=== PATIENT | male | born 1985 | race Caucasian/White ===

== ENCOUNTER → 2016-09-22 | Day surgery (SDC) | payer BC ==
[~2016-09-22] MED LIST: Acetaminophen/HYDROcodone 325-7.5 MG Tab PO PRN; Bupivacaine 0.5% 10 ML SDV ONE; HYDROmorphone 2 MG/ML Syringe ONE; Labetalol 100 MG/20 ML MDV ONE; Lactated Ringers 1,000 ML IV SCH; Lidocaine 2% 5 ML SDV ONE; Meperidine PF 25 MG/ML Syringe ONE; Midazolam 1 MG/ML 2 ML SDV ONE; Morphine 10 MG/ML Syringe IVPUSH PRN; Ondansetron 4 MG/2 ML SDV IVPUSH ONE; Ondansetron 4 MG/2 ML SDV ONE; Propofol 200 MG/20 ML SDV ONE; Sodium Chloride 0.9% 10 ML Syringe FLUSH PRN; Sodium Chloride 0.9% 2.5 ML Syringe FLUSH PRN; Sodium Chloride 0.9% 20 ML ONE; Succinylcholine/Normal Saline 200 MG/10 ML Syringe ONE; ceFAZolin 1 GM Vial ONE; ceFAZolin 2 GM in Premix Bag 1 BAG IV ONE; fentaNYL 100 MCG/2 ML SDV IVPUSH PRN; fentaNYL 250 MCG/5 ML SDV ONE
--- NOTE | 2016-09-22 20:25 | EDM.PDOC ---
ED HPI GENERAL MEDICAL PROBLEM - General Chief Complaint: Upper Extremity Injury/Pain Stated Complaint: PAIN LT WRIST Time Seen by Provider: 09/22/16 20:22 Source of Information: Reports: Patient History Limitations: Reports: No Limitations - History of Present Illness INITIAL COMMENTS - FREE TEXT/NARRATIVE: HISTORY AND PHYSICAL: []31-year-old male presents with deformity to the left wrist History of Present Illness: [] Patient was playing baseball told for a ball and his risk contact and flex hyper flexed backwards is a swan neck to the wrist Loss of consciousness he did catch the ball and then it rolled out of his glove Review of Systems: As per history of present illness and below otherwise all systems reviewed and negative. Past medical history: As per history of present illness and as reviewed below otherwise noncontributory. Surgical history: As per history of present illness and as reviewed below otherwise noncontributory. Social history: No reported history of drug or alcohol abuse. Family history: As per history of present illness and as reviewed below otherwise noncontributory. Physical exam: Alert and oriented male answering questions in full sentences HEENT: Atraumatic, normocehpalic, pupils reactive, negative for conjunctival pallor or scleral icterus, mucous membranes moist, throat clear, neck supple, nontender, trachea midline. Lungs: Clear to auscultation, breath sounds equal bilaterally, chest non tender. Heart: S1S2, regular, negative for clicks, rubs, or JVD. Rectal: Deferred Extremities: Splint is been placed on his left forearm. Ice to this area. Radial pulses intact 2+ slight tingling noted to the fingertips. Edema and swan neck deformity to the wrist and forearm, negative for cords or calf pain. Neurovascular unremarkable. Intact Neuro: Awake, alert, oriented. Cranial nerves II through XII unremarkable. Cerebellum unremarkable. Motor and sensory unremarkable throughout. Exam nonfocal. Pain level is a 4 while he is just sitting there and with ice on and splinted refusing the offer of pain medication. Dr. Mace is here to evaluate patient. Xray reviewed for fracture Diagnostics: []X-ray Therapeutics: [] Impression: [Displaced fracture the distal shaft of the radius with volar angulation Disruption of the distal radial ulnar joint with volar dislocation] Plan: [Refer patient to Dr. Mace] Definitive disposition and diagnosis as appropriate pending reevaluation and review of above. Onset: Today, Sudden Duration: Minutes: Location: Reports: Upper Extremity, Left Quality: Reports: Sharp Severity: Moderate Improves with: Reports: None Worsens with: Reports: None Associated Symptoms: Reports: No Other Symptoms Left Arm Pain Score (Numeric/FACES): 4 - Related Data Allergies Allergy/AdvReac Type Severity Reaction Status Date / Time No Known Allergies Allergy Verified 01/01/15 13:41 Home Meds: Home Meds . [No Known Home Meds] 01/01/15 [History] Past Medical History - Past Health History Medical/Surgical History: Denies Medical/Surgical History Other Psychiatric History: tourretts Social & Family History - Tobacco Use Smoking Status *Q: Never Smoker Second Hand Smoke Exposure: No - Alcohol Use Days Per Week of Alcohol Use: 6 Number of Drinks Per Day: 3 Total Drinks Per Week: 18 - Recreational Drug Use Recreational Drug Use: No Review of Systems - Review of Systems Review Of Systems: ROS reveals no pertinent complaints other than HPI. ED EXAM, GENERAL - Physical Exam Exam: See Below (see dictation) Course - Vital Signs Last Recorded V/S: Last Vital Signs Temp 37.1 C 09/22/16 20:56 Pulse 88 09/22/16 20:56 Resp 18 09/22/16 20:56 BP 129/83 09/22/16 20:56 Pulse Ox 98 09/22/16 20:56 - Orders/Labs/Meds Orders: Active Orders 24 hr Category Date Time Status Patient Status [ADT] Stat ADT 09/22/16 21:27 Active Verify Patient Consent Obtain [RC] ASDIRECTED Care 09/22/16 21:23 Active Vital Signs [RC] PER UNIT ROUTINE Care 09/22/16 21:24 Active Nothing per Oral After Midnight Diet [DIET] Diet 09/22/16 Breakfast Active Wrist 2V Lt [CR] Stat Exams 09/22/16 20:11 Taken Lactated Ringers [Ringers, Lactated] 1,000 ml Med 09/22/16 21:30 Ordered IV ASDIRECTED Morphine Med 09/22/16 21:24 Ordered 1 - 5 mg IVPUSH Q2H PRN Sodium Chloride 0.9% [Saline Flush] Med 09/22/16 21:29 Active 10 ml FLUSH ASDIRECTED PRN Sodium Chloride 0.9% [Saline Flush] Med 09/22/16 21:29 Active 2.5 ml FLUSH ASDIRECTED PRN ceFAZolin [Ancef] 2,000 mg Med 09/22/16 21:24 Ordered Sodium Chloride 0.9% [Normal Saline] 100 ml IV ONETIME Saline Lock Insert [OM.PC] Stat Oth 09/22/16 21:29 Ordered Medication Orders Lactated Ringer's (Ringers, Lactated) 1,000 mls @ 100 mls/hr IV ASDIRECTED YOLANDE Cefazolin Sodium 2,000 mg/ (Sodium Chloride) 100 mls @ 100 mls/hr IV ONETIME ONE Stop: 09/22/16 22:23 Morphine Sulfate (Morphine) 1 - 5 mg IVPUSH Q2H PRN PRN Reason: Pain Sodium Chloride (Saline Flush) 10 ml FLUSH ASDIRECTED PRN PRN Reason: Keep Vein Open Sodium Chloride (Saline Flush) 2.5 ml FLUSH ASDIRECTED PRN PRN Reason: Keep Vein Open Meds: Medications Generic Name Dose Route Start Last Admin Trade Name Freq PRN Reason Stop Dose Admin Lactated Ringer's 1,000 mls @ 100 mls/hr 09/22/16 21:30 Ringers, Lactated IV ASDIRECTED YOLANDE Cefazolin Sodium 2,000 mg/ 100 mls @ 100 mls/hr 09/22/16 21:24 Sodium Chloride IV 09/22/16 22:23 ONETIME ONE Morphine Sulfate 1 - 5 mg 09/22/16 21:24 Morphine IVPUSH Q2H PRN Pain Sodium Chloride 10 ml 09/22/16 21:29 Saline Flush FLUSH ASDIRECTED PRN Keep Vein Open Sodium Chloride 2.5 ml 09/22/16 21:29 Saline Flush FLUSH ASDIRECTED PRN Keep Vein Open Departure - Departure Time of Disposition: 21:08 Disposition: Refer to Observation Condition: Fair Clinical Impression: Closed fracture of radius Qualifiers: Encounter type: initial encounter Radius location: distal Fracture morphology: unspecified fracture morphology Laterality: left Qualified Code(s): S52.502A - Unspecified fracture of the lower end of left radius, initial encounter for closed fracture - Discharge Information - My Orders Last 24 Hours: My Active Orders 09/22/16 20:11 Wrist 2V Lt [CR] Stat 09/22/16 21:27 Patient Status [ADT] Stat 09/22/16 21:29 Sodium Chloride 0.9% [Saline Flush] 10 ml FLUSH ASDIRECTED PRN Sodium Chloride 0.9% [Saline Flush] 2.5 ml FLUSH ASDIRECTED PRN Saline Lock Insert [OM.PC] Stat - Assessment/Plan Last 24 Hours: My Active Orders 09/22/16 20:11 Wrist 2V Lt [CR] Stat 09/22/16 21:27 Patient Status [ADT] Stat 09/22/16 21:29 Sodium Chloride 0.9% [Saline Flush] 10 ml FLUSH ASDIRECTED PRN Sodium Chloride 0.9% [Saline Flush] 2.5 ml FLUSH ASDIRECTED PRN Saline Lock Insert [OM.PC] Stat
--- NOTE | 2016-09-22 21:43 | PCM.PREANE ---
Preanesthetic Assessment - Anesthesia/Transfusion/Family Hx Anesthesia History: Prior Anesthesia Without Reaction Intubation History: Unknown - Review of Systems General: No Symptoms Pulmonary: No Symptoms Cardiovascular: No Symptoms Gastrointestinal: No Symptoms Neurological: No Symptoms Other: Reports: None - Physical Assessment O2 Sat by Pulse Oximetry: 98 Respiratory Rate: 18 Vital Signs: Last Vital Signs Temp 98.8 F 09/22/16 20:56 Pulse 88 09/22/16 20:56 Resp 18 09/22/16 20:56 BP 129/83 09/22/16 20:56 Pulse Ox 98 09/22/16 20:56 Height: 5 ft 10 in Weight: 85.3 kg ASA Class: 1E Mental Status: Alert & Oriented x3 Airway Class: Mallampati = 2 Dentition: Reports: Normal Dentition Thyro-Mental Finger Breadths: 3 Mouth Opening Finger Breadths: 3 ROM/Head Extension: Full Lungs: Clear to Auscultation, Normal Respiratory Effort Cardiovascular: Regular Rate, Regular Rhythm - Allergies Allergies/Adverse Reactions: Allergies Allergy/AdvReac Type Severity Reaction Status Date / Time No Known Allergies Allergy Verified 01/01/15 13:41 - Anesthesia Plan Free Text/Narrative:: Numbness and tingling is noted to the median distribution of the Left hand - Acknowledgements Anesthesia Type Planned: General Anesthesia (with RSI) Pt an Appropriate Candidate for the Planned Anesthesia: Yes Alternatives and Risks of Anesthesia Discussed w Pt/Guardian: Yes Pt/Guardian Understands and Agrees with Anesthesia Plan: Yes PreAnesthesia Questionnaire - Past Health History Medical/Surgical History: Denies Medical/Surgical History HEENT History: Reports: None Cardiovascular History: Reports: None Respiratory History: Reports: None Gastrointestinal History: Reports: None Genitourinary History: Reports: None Musculoskeletal History: Reports: None Neurological History: Reports: None Other Psychiatric History: tourretts Endocrine/Metabolic History: Reports: None Hematologic History: Reports: None Immunologic History: Reports: None Oncologic (Cancer) History: Reports: None Dermatologic History: Reports: None - Infectious Disease History Infectious Disease History: Reports: None - Past Surgical History GI Surgical History: Reports: Hernia Repair/Other Musculoskeletal Surgical History: Reports: Arthroscopic Knee (Knee), ORIF ( Ankle x 2) - SUBSTANCE USE Smoking Status *Q: Never Smoker Second Hand Smoke Exposure: No Days Per Week of Alcohol Use: 6 Number of Drinks Per Day: 3 Total Drinks Per Week: 18 Recreational Drug Use History: No - HOME MEDS Home Medications: Home Meds . [No Known Home Meds] 01/01/15 [History] - CURRENT (IN HOUSE) MEDS Current Meds: Current Medications Lactated Ringer's (Ringers, Lactated) 1,000 mls @ 100 mls/hr IV ASDIRECTED YOLANDE Cefazolin Sodium 2,000 mg/ (Sodium Chloride) 100 mls @ 100 mls/hr IV ONETIME ONE Stop: 09/22/16 22:23 Morphine Sulfate (Morphine) 1 - 5 mg IVPUSH Q2H PRN PRN Reason: Pain Sodium Chloride (Saline Flush) 10 ml FLUSH ASDIRECTED PRN PRN Reason: Keep Vein Open Sodium Chloride (Saline Flush) 2.5 ml FLUSH ASDIRECTED PRN PRN Reason: Keep Vein Open
--- NOTE | 2016-09-23 00:59 | PCM.OPNOTE ---
- General Post-Op/Procedure Note Date of Surgery/Procedure: 09/23/16 Operative Procedure(s): ORIF left radial shaft fx, non-op treatment DRUJ disruption Findings: comminution, stable DRUJ at end Pre Op Diagnosis: left radial shaft fx with DRUJ disruption (Galeazzi fx) Post-Op Diagnosis: same Anesthesia Technique: General ET Tube Primary Surgeon: Damon Fry Mai EBL in mLs: 10 Complications: none Condition: Fair
--- NOTE | 2016-09-23 01:16 | HP ---
DATE OF : 1985 PRIMARY CARE PHYSICIAN: None PCP SUBJECTIVE: The patient is a 31-year-old [id number] male, who was diving for a fly ball, playing softball this evening where his arm got caught. He had immediate pain and deformity to the arm and presented to the ER. He feels that he has a little bit of tingling into his fingers in all 5 of them. He has no pain elsewhere to include the elbow. He denies history of fracture. PAST MEDICAL HISTORY: None. PAST SURGICAL HISTORY: Includes left ankle fracture with removal of the plate, hernia, and finger cyst. MEDICATIONS: None. ALLERGIES: None. SOCIAL HISTORY: He does not smoke. He drinks occasionally. No illicit. He works mainly sitting. FAMILY HISTORY: No problems with bleeding disorders or anesthesia. REVIEW OF SYSTEMS: No current problems of heart, lungs, kidney, or liver. PHYSICAL EXAMINATION: GENERAL: No apparent distress. Alert and oriented x3. HEENT: Mucous membranes moist. Anicteric. LUNGS: Equal symmetric expansion. CARDIOVASCULAR: Regular rate and rhythm. 2+ radial and ulnar pulse left upper extremity. ABDOMEN: Soft. EXTREMITIES: Left arm reveals deformity with angulation in the distal third. He has normal sensation in radial, median, ulnar nerves. Active motor strength in AIN/PIN/ulnar nerves. He has 2+ radial and ulnar pulse. DIAGNOSTIC DATA: X-rays of left forearm demonstrate a Galeazzi fracture with apex volar radius fracture with volar dislocation of the distal radioulnar joint. ASSESSMENT: Left Galeazzi fracture. PLAN: I discussed diagnosis, treatment options with the patient including operative and nonoperative measures. I recommended operative fixation with him rather than closed reduction and fixation later. The patient elects to have surgery. He understands the risks, benefits, complications of procedure including, but not limited to infection, neurovascular injury, continued pain, DVT, PE, stroke, [place], , malunion, nonunion, loss of motion, and he wished to proceed. I discussed with him that examination after fixing the radius would determine whether the DRUJ would need to be pinned, and that he would likely be immobilized in supination for a period. GLENDY SPEAR /[id number]
--- NOTE | 2016-09-23 01:25 | PCM48HPAN ---
Post Anesthesia Note - EVALUATION WITHIN 48HRS OF ANESTHETIC Vital Signs in Normal Range: Yes Patient Participated in Evaluation: Yes Respiratory Function Stable: Yes Airway Patent: Yes Cardiovascular Function Stable: Yes Hydration Status Stable: Yes Pain Control Satisfactory: Yes Nausea and Vomiting Control Satisfactory: Yes Mental Status Recovered: Yes
--- NOTE | 2016-09-23 01:25 | PCM.POSTAN ---
POST ANESTHESIA ASSESSMENT - MENTAL STATUS Mental Status: Alert, Oriented - RESPIRATORY Respiratory Status: respiratory rate WNL, Airway Patent, O2 Saturation Stable - CARDIOVASCULAR CV Status: Pulse Rate WNL, Blood Pressure Stable - GASTROINTESTINAL GI Status: No Symptoms - POST OP HYDRATION Hydration Status: Adequate & Stable
[2016-09-23 06:55] VITALS: BP 130/73
--- NOTE | 2016-09-23 08:42 | CR ---
EXAMINATION: Left wrist HISTORY: ORIF COMPARISON: 09/22/2016 TECHNIQUE: 5 fluoroscopic films provided. FINDINGS/IMPRESSION: Operative control films demonstrate screw and plate fixation of a reduced dista l radial diaphysis fracture.
--- NOTE | 2016-09-23 10:52 | CR ---
EXAM DATE: 09/22/16 PATIENT'S AGE: 31 Patient: TRIXIE DOUGLAS Facility: [place], [place] Site . Site : 1985 Study: XRay Extremity wrist [id number]/24/2017 8:40:24 PM Ordering Physician: Doctor Pretty Final Report: INDICATION: Trauma TECHNIQUE: Two views left wrist COMPARISON: None FINDINGS: Bones: Displaced fracture distal shaft of the radius with volar angulation. Joint spaces: Disruption of the distal radial ulnar joint with anterior dislocation of the ulna. Soft tissues: Unremarkable. IMPRESSION: Displaced fracture distal shaft of the radius with volar angulation. Disruption of the distal radial ulnar joint with volar dislocation of the distal ulna. Postreduction views recommended. Dictated by Giancarlo Rosenthal MD @ 09/22/2016 9:03:06 PM Dictated by: Giancarlo Rosenthal MD @ 09/22/2016 21:03:14 (Electronic Signature) Report Signed by Proxy. DENIS
--- NOTE | 2016-09-24 09:54 | OR ---
SURGEON: Damon Mace MD DATE OF PROCEDURE: 09/23/2016 PREOPERATIVE DIAGNOSIS: Left radial shaft fracture with distal radioulnar joint disruption (Galeazzi fracture). OPERATION PERFORMED: Open reduction and internal fixation of left radial shaft fracture with nonoperative treatment of distal radioulnar joint disruption. ANESTHESIA: General. COMPLICATION: None. ESTIMATED BLOOD LOSS: 10 mL. SPECIMENS: None. TOURNIQUET TIME: 25 minutes. IMPLANTS: Lydia DC plate with six 3.5 cortical nonlocking screws INDICATIONS: The patient is a 31-year-old male, right-hand dominant, who suffered a Galeazzi fracture yesterday evening. He was getting some tingling into his hand. I discussed with him the risks, benefits, alternatives, and complications of open reduction and internal fixation including not limited to, infection, neurovascular injury, continued pain, symptoms, malunion, nonunion, DRUJ disruption to include, need to be pinned and he wished to proceed. NARRATIVE: The patient was seen in the preop area, upper extremity was marked. The patient was transferred to the operating room, and placed supine on the operating room table. General anesthesia was induced. An endotracheal tube was placed. He received preop antibiotics Ancef. His left upper extremity was prepped and draped usual sterile fashion using alcohol followed by ChloraPrep. A formal time-out was taken identifying the correct patient, procedure, and extremity. A well-padded upper arm tourniquet had been placed and then the limb was exsanguinated with an Esmarch and pneumatic tourniquet inflated to 200 mmHg. A 12 cm incision centered over the FCR tendon was made. Dissection was carried out down to subcutaneous tissues. Hemostasis was obtained. The fascia overlying the FCR was opened and the FCR was pulled ulnarly. The fascia over the FPL was opened and the FPL was released from the bone as well as the pronator quadratus over its proximal 2/3rd and this was retracted ulnarly. The fracture was readily able to be identified and was able to be reduced and held with a reduction clamp, then a 6-hole Lydia DC plate was placed. One screw hole was placed proximal and distal to hold it and then the remainder of the four holes were all placed bicortical 2 more proximal and 2 more distal. This had excellent reduction of the fracture. There were couple of small pieces of comminuted fracture pieces which were removed, the fracture was short and oblique. The wound was then thoroughly irrigated. The arm was then pronated and supinated and had full range of motion. The DRUJ was stable and would not dislocate. Fluoroscopy showed anatomic reduction of the fracture in the AP and lateral views as well as of the DRUJ with no disruption. Tourniquet were deflated. Hemostasis was obtained. The wound was thoroughly irrigated. The subcutaneous tissues were closed with 3-0 Vicryl and skin was closed with xiomara. He was then anesthetized with Marcaine. Xeroform and a splint were placed. The patient was extubated in the operative room and transferred to recovery room in stable condition. Sponge and needle counts were correct at the end of the case. There were no complications. GLENDY SPEAR /[id number]
== END | disposition home or self-care (01) ==
LOC: MW.ED 19:51 → MW.SDS 21:19
PROVIDERS: ATTEND Orthopaedic Surgery
PROC: 0PSJ04Z Reposition Left Radius with Internal Fixation Device, Open Approach (ICD-10-PCS; principal; 2016-09-22)
PROC: 0PSD04Z Reposition Left Humeral Head with Internal Fixation Device, Open Approach (ICD-10-PCS; 2016-09-22)
DX: S52.372A Galeazzi's fracture of left radius, initial encounter for closed fracture (principal); Y93.64 Activity, baseball; Z87.81 Personal history of (healed) traumatic fracture; Z98.890 Other specified postprocedural states
CPT/HCPCS: 25526; 73100; 96374; 96375; 99284; C1713; J0690; J2250; J2270; J2405; J3010; J7120; 01830; 76000; 76000-26; 99285; A9270-GY; J1170; J2175; J2704

== ENCOUNTER 2019-02-12 15:31 | Emergency (ER) | payer BC ==
[2019-02-12 15:40] VITALS: BP 131/95; PULSE 96
[2019-02-12] MEDS ORDERED: Ondansetron 4 MG/2 ML SDV IVPUSH ONE (15:52)
[2019-02-12] MEDS ORDERED: Sodium Chloride 0.9% 1,000 ML IV ONE (15:52)
[2019-02-12] MEDS ORDERED: Metoclopramide 10 MG/2 ML SDV IV ONE (15:53)
[2019-02-12] MEDS ORDERED: diphenhydrAMINE 50 MG/ML SDV IVPUSH ONE (15:53)
--- NOTE | 2019-02-12 16:12 | EDM.PDOC ---
ED HPI GENERAL MEDICAL PROBLEM - General Chief Complaint: Gastrointestinal Problem Stated Complaint: VOMITTING AND MIGRAINE Time Seen by Provider: 02/12/19 15:46 Source of Information: Reports: Patient History Limitations: Reports: No Limitations - History of Present Illness INITIAL COMMENTS - FREE TEXT/NARRATIVE: HISTORY AND PHYSICAL: History of present illness: Patient is a 33-year-old male presents to the ED today with concern of vomiting and RLQ abdominal pain 3 days. Patient also complains of headache which he states is what brought him into the ED today because he has not had a headache this painful according to patient. Patient states he has had a hernia repair when he was little but denies any other abdominal surgeries. Patient states that any time he tries to eat or drink any fluids hands of vomiting shortly after. Patient denies any health history or any other symptoms or concerns. Patient denies fever, chills, chest pain, shortness of breath, or cough. Denies neck stiff ness, change in vision, syncope, or near syncope. Denies diarrhea, constipation, or dysuria. Has not noted any blood in urine or stool. Patient has been eating and drinking appropriately. Review of systems: As per history of present illness and below otherwise all systems reviewed and negative. Past medical history: As per history of present illness and as reviewed below otherwise noncontributory. Surgical history: As per history of present illness and as reviewed below otherwise noncontributory. Social history: See social history for further information Family history: As per history of present illness and as reviewed below otherwise noncontributory. Physical exam: General: Patient is alert, oriented, and in no acute distress. Patient laying comfortably on exam table. HEENT: Atraumatic, normocephalic, pupils equal and reactive bilaterally, negative for conjunctival pallor or scleral icterus, mucous membranes moist, TMs normal bilaterally, throat clear, neck supple, nontender, trachea midline. No drooling or trismus noted. No meningeal signs. No hot potato voice noted. Lungs: Clear to auscultation, breath sounds equal bilaterally, chest nontender. Heart: S1S2, regular rate and rhythm without overt murmur Abdomen: Soft, nondistended, nontender. Negative for masses or hepatosplenomegaly. Negative for costovertebral tenderness. Pelvis: Stable nontender. Genitourinary: Deferred. Rectal: Deferred. Skin: Intact, warm, dry. No lesions or rashes noted. Extremities: Atraumatic, negative for cords or calf pain. Neurovascular unremarkable. Neuro: Awake, alert, oriented. Cranial nerves II through XII unremarkable. Cerebellum unremarkable. Motor and sensory unremarkable throughout. Exam nonfocal. Notes: Patient able to tolerate by mouth intake in the ED today. Voices understanding and is agreeable to plan of care. Denies any further questions or concerns at this time. Diagnostics: CBC, CMP, UA, lipase, abd/pelvic CT, head CT, influenza Therapeutics: NS, Benadryl, Zofran, Reglan, Toradol Prescription: Zofran Impression: Abdominal pain, unspecified H/O vomiting Headache Transaminitis Plan: 1. Take medication as prescribed. Encourage small frequent sips of fluid to prevent dehydration. 2. You can alternate ibuprofen and Tylenol as directed for pain and discomfort. 3. Follow up with your primary care provider as discussed. Return to the ED as needed and as discussed. Definitive disposition and diagnosis as appropriate pending reevaluation and review of above. Generalized Pain Score (Numeric/FACES): 8 - Related Data Allergies Allergy/AdvReac Type Severity Reaction Status Date / Time No Known Allergies Allergy Verified 02/12/19 15:38 Home Meds: Home Meds . [No Known Home Meds] 02/12/19 [History] Past Medical History - Past Health History Medical/Surgical History: Denies Medical/Surgical History HEENT History: Reports: None Cardiovascular History: Reports: None Respiratory History: Reports: None Gastrointestinal History: Reports: None Genitourinary History: Reports: None Musculoskeletal History: Reports: None Neurological History: Reports: None Other Psychiatric History: tourretts Endocrine/Metabolic History: Reports: None Hematologic History: Reports: None Immunologic History: Reports: None Oncologic (Cancer) History: Reports: None Dermatologic History: Reports: None - Infectious Disease History Infectious Disease History: Reports: Chicken Pox - Past Surgical History GI Surgical History: Reports: Hernia Repair/Other Musculoskeletal Surgical History: Reports: Arthroscopic Knee, ORIF Social & Family History - Family History Family Medical History: Noncontributory - Tobacco Use Smoking Status *Q: Never Smoker Second Hand Smoke Exposure: No - Caffeine Use Caffeine Use: Reports: None - Recreational Drug Use Recreational Drug Use: No ED ROS GENERAL - Review of Systems Review Of Systems: Comprehensive ROS is negative, except as noted in HPI. ED EXAM, GENERAL - Physical Exam Exam: See Below (see dictation) Course - Vital Signs Last Recorded V/S: Last Vital Signs Temp 96.3 F 02/12/19 15:38 Pulse 96 02/12/19 15:38 Resp 18 02/12/19 15:38 BP 131/95 H 02/12/19 15:38 Pulse Ox 98 02/12/19 15:38 - Orders/Labs/Meds Orders: Active Orders 24 hr Category Date Time Status UA RFX LELA AND CULT IF INDIC [URIN] Stat Lab 02/12/19 15:52 Ordered Ketorolac [Toradol] Med 02/12/19 17:54 Once 30 mg IVPUSH ONETIME ONE Medication Orders Ketorolac Tromethamine (Toradol) 30 mg IVPUSH ONETIME ONE Stop: 02/12/19 17:55 Labs: Laboratory Tests 02/12/19 02/12/19 Range/Units 16:00 16:00 WBC 5.46 (4.0-11.0) K/uL RBC 4.81 (4.50-5.90) M/uL Hgb 16.5 (13.0-17.0) g/dL Hct 46.2 (38.0-50.0) % MCV 96.0 (80.0-98.0) fL MCH 34.3 H (27.0-32.0) pg MCHC 35.7 (31.0-37.0) g/dL RDW Std Deviation 44.9 (28.0-62.0) fl RDW Coeff of Nelly 13 (11.0-15.0) % Plt Count 122 L (150-400) K/uL MPV 10.00 (7.40-12.00) fL Neut % (Auto) 79.2 (48.0-80.0) % Lymph % (Auto) 13.6 L (16.0-40.0) % [place] % (Auto) 6.6 (0.0-15.0) % Eos % (Auto) 0.4 (0.0-7.0) % Baso % (Auto) 0.2 (0.0-1.5) % Neut # (Auto) 4.3 (1.4-5.7) K/uL Lymph # (Auto) 0.7 (0.6-2.4) K/uL [place] # (Auto) 0.4 (0.0-0.8) K/uL Eos # (Auto) 0.0 (0.0-0.7) K/uL Baso # (Auto) 0.0 (0.0-0.1) K/uL Nucleated RBC % 0.0 /100WBC Nucleated RBCs # 0 K/uL Sodium 136 (136-148) mmol/L Potassium 3.6 (3.5-5.1) mmol/L Chloride 101 (98-107) mmol/L Carbon Dioxide 25.0 (21.0-32.0) mmol/L BUN 8 (7.0-18.0) mg/dL Creatinine 1.0 (0.8-1.3) mg/dL Est Cr Clr Drug Dosing 107.47 mL/min Estimated GFR (MDRD) > 60.0 ml/min Glucose 98 (74-106) mg/dL Calcium 8.6 (8.5-10.1) mg/dL Total Bilirubin 1.4 H (0.2-1.0) mg/dL AST 252 H (15-37) IU/L ALT 150 H (14-63) IU/L Alkaline Phosphatase 75 (46-116) U/L Total Protein 7.6 (6.4-8.2) g/dL Albumin 3.8 (3.4-5.0) g/dL Globulin 3.8 (2.6-4.0) g/dL Albumin/Globulin Ratio 1.0 (0.9-1.6) Lipase 76 (73-393) U/L Meds: Medications Generic Name Dose Route Start Last Admin Trade Name Freq PRN Reason Stop Dose Admin Ketorolac Tromethamine 30 mg 02/12/19 17:54 Toradol IVPUSH 02/12/19 17:55 ONETIME ONE Discontinued Medications Generic Name Dose Route Start Last Admin Trade Name Freq PRN Reason Stop Dose Admin Diphenhydramine HCl 50 mg 02/12/19 15:53 02/12/19 16:15 Benadryl IVPUSH 02/12/19 15:54 50 mg ONETIME ONE Administration Sodium Chloride 1,000 mls @ 999 mls/hr 02/12/19 15:52 02/12/19 16:15 Normal Saline IV 02/12/19 16:52 999 mls/hr BOLUS ONE Administration Iopamidol 100 ml 02/12/19 17:33 02/12/19 17:34 Isovue-370 (76%) IVPUSH 02/12/19 17:34 100 ml ONETIME STA Administration Metoclopramide HCl 10 mg 02/12/19 15:53 02/12/19 16:15 Reglan IV 02/12/19 15:54 10 mg ONETIME ONE Administration Ondansetron HCl 4 mg 02/12/19 15:52 02/12/19 16:15 Zofran IVPUSH 02/12/19 15:53 4 mg ONETIME ONE Administration Departure - Departure Time of Disposition: 17:56 Disposition: Home, Self-Care 01 Clinical Impression: History of vomiting, Transaminitis Headache Qualifiers: Headache type: unspecified Headache chronicity pattern: acute headache Intractability: not intractable Qualified Code(s): R51 - Headache Abdominal pain Qualifiers: Abdominal location: lower abdomen, unspecified Qualified Code(s): R10.30 - Lower abdominal pain, unspecified - Discharge Information Referrals: Jaspreet Gerardo MD [Primary Care Provider] - Forms: ED Department Discharge Additional Instructions: The following information is given to patients seen in the emergency department who are being discharged to home. This information is to outline your options for follow-up care. We provide all patients seen in our emergency department with a follow-up referral. The need for follow-up, as well as the timing and circumstances, are variable depending upon the specifics of your emergency department visit. If you don't have a primary care physician on staff, we will provide you with a referral. We always advise you to contact your personal physician following an emergency department visit to inform them of the circumstance of the visit and for follow-up with them and/or the need for any referrals to a consulting specialist. The emergency department will also refer you to a specialist when appropriate. This referral assures that you have the opportunity for follow-up care with a specialist. All of these measure are taken in an effort to provide you with optimal care, which includes your follow-up. Under all circumstances we always encourage you to contact your private physician who remains a resource for coordinating your care. When calling for follow-up care, please make the office aware that this follow-up is from your recent emergency room visit. If for any reason you are refused follow-up, please contact the [facility] at and asked to speak to the emergency department charge nurse. [facility] [address] [place] [address] [facility] [address] [place] [id number] 1. Take medication as prescribed. Encourage small frequent sips of fluid to prevent dehydration. 2. You can alternate ibuprofen and Tylenol as directed for pain and discomfort. 3. Follow up with your primary care provider as discussed. Return to the ED as needed and as discussed. Sepsis Event Note - Evaluation Sepsis Screening Result: No Definite Risk - Focused Exam Vital Signs: Vital Signs Temp Pulse Resp BP Pulse Ox 02/12/19 15:38 96.3 F 96 18 131/95 H 98 Date Exam was Performed: 02/12/19 Time Exam was Performed: 17:54 - My Orders Last 24 Hours: My Active Orders 02/12/19 15:52 UA RFX LELA AND CULT IF INDIC [URIN] Stat 02/12/19 17:54 Ketorolac [Toradol] 30 mg IVPUSH ONETIME ONE - Assessment/Plan Last 24 Hours: My Active Orders 02/12/19 15:52 UA RFX LELA AND CULT IF INDIC [URIN] Stat 02/12/19 17:54 Ketorolac [Toradol] 30 mg IVPUSH ONETIME ONE
[2019-02-12 16:53] LABS: BLOOD UREA NITROGEN,BUN 8 mg/dL (7.0-18.0); CHLORIDE,CL 101 mmol/L (98-107); GLUCOSE RANDOM 98 mg/dL (74-106); LIPASE 76 U/L (73-393); POTASSIUM,K 3.6 mmol/L (3.5-5.1); SODIUM,NA 136 mmol/L (136-148)
[2019-02-12] MEDS ORDERED: Iopamidol 755 Mg/ML 100 ML Bottle IVPUSH STA (17:33)
--- NOTE | 2019-02-12 17:40 | CT ---
Indication: Headache and vomiting for 3 days. Technique: Multiple contiguous axial images were obtained from the lung bases through the symphysis pubis without intravenous contrast enhancement. Please note that all CT scans at this facility use dose modulation, iterative reconstruction, and/or weight-based dosing when appropriate to reduce radiation dose to as low as reasonably achievable. Comparison: None Findings: The lung bases are clear. No infiltrate, pleural effusion, pneumothorax is identified. The heart is normal in size. No pericardial effusions identified. Mild diffuse fatty infiltration of the liver is identified. No intrahepatic biliary ductal dilatation is identified. The liver, spleen, pancreas, gallbladder, adrenals, kidneys are otherwise normal. No hydronephrosis is identified. In the pelvis, the urinary bladder is normal. The prostate gland is normal. The small and large bowel are normal in caliber. The appendix is normal. No free air or free fluid is identified within the abdomen or pelvis. The aorta is normal in caliber. No lytic or blastic lesions of the spine are identified. Impression: No acute findings of the abdomen or pelvis. Mild diffuse fatty infiltration of the liver Please note that all CT scans at this facility use dose modulation, iterative reconstruction, and/or weight-based dosing when appropriate to reduce radiation dose to as low as reasonably achievable. Dictated by Jacqueline Chauhan MD @ Feb 12 2019 5:34PM Signed by Dr. Jacqueline Chauhan @ Feb 12 2019 5:38PM
--- NOTE | 2019-02-12 17:42 | CT ---
Indication: Headache. Technique: Multiple contiguous axial images were obtained from the skullbase to the vertex without intravenous contrast enhancement. Please note that all CT scans at this facility use dose modulation, iterative reconstruction, and/or weight-based dosing when appropriate to reduce radiation dose to as low as reasonably achievable. Comparison: None Findings: The ventricles are symmetric and normal in size morphology. The basal cisterns are widely patent. No intra-axial or extra-axial hemorrhage is identified. No mass, mass effect or midline shift is seen. The bony calvarium is intact. The visualized paranasal sinuses and mastoid air cells are clear. Impression: No acute intracranial process. Please note that all CT scans at this facility use dose modulation, iterative reconstruction, and/or weight-based dosing when appropriate to reduce radiation dose to as low as reasonably achievable. Dictated by Jacqueline Chauhan MD @ Feb 12 2019 5:40PM Signed by Dr. Jacqueline Chauhan @ Feb 12 2019 5:40PM
[2019-02-12] MEDS ORDERED: Ketorolac 30 MG/ML SDV IVPUSH ONE (17:54)
== END 2019-02-12 18:32 | disposition home or self-care (01) ==
LOC: MW.ED 15:31
DX: R10.31 Right lower quadrant pain (principal); R51 Headache; R74.0 Nonspecific elevation of levels of transaminase and lactic acid dehydrogenase [LDH]; R11.10 Vomiting, unspecified
CPT/HCPCS: 36415; 70450; 74177; 80053; 83690; 85025; 87804; 96361; 96374; 96375; 99284; J1200; J1885; J2405; J2765; J7030; Q9967

== ENCOUNTER 2020-10-28 19:37 | Emergency (ER) | payer SELFPAY ==
[2020-10-28 20:03] VITALS: BP 121/87; PULSE 134
--- NOTE | 2020-10-28 20:12 | EDM.PDOC ---
ED HPI GENERAL MEDICAL PROBLEM - General Chief Complaint: Flank Pain Stated Complaint: LEFT SIDE PAIN Time Seen by Provider: 10/28/20 19:57 Source of Information: Reports: Patient History Limitations: Reports: No Limitations - History of Present Illness INITIAL COMMENTS - FREE TEXT/NARRATIVE: Patient is a 35-year-old male presents today for left-sided flank pain. Patient states he was playing softball when he was flipped over line on the left side. Patient has pain with movement and some pain with deep breath. She denies any pain without movement. He has not taken any meds for the pain. She denies any fevers chills nausea vomiting or other complaints at this time. Left Middle Thoracic Pain Score (Numeric/FACES): 8 - Related Data Allergies Allergy/AdvReac Type Severity Reaction Status Date / Time No Known Allergies Allergy Verified 10/28/20 20:03 Home Meds: Home Meds Sertraline [Zoloft] 0 mg PO 10/28/20 [History] Past Medical History - Past Health History Medical/Surgical History: Denies Medical/Surgical History HEENT History: Reports: None Cardiovascular History: Reports: None Respiratory History: Reports: None Gastrointestinal History: Reports: None Genitourinary History: Reports: None Musculoskeletal History: Reports: None Neurological History: Reports: None Other Psychiatric History: tourretts Endocrine/Metabolic History: Reports: None Hematologic History: Reports: None Immunologic History: Reports: None Oncologic (Cancer) History: Reports: None Dermatologic History: Reports: None - Infectious Disease History Infectious Disease History: Reports: Chicken Pox - Past Surgical History GI Surgical History: Reports: Hernia Repair/Other Musculoskeletal Surgical History: Reports: Arthroscopic Knee, ORIF Social & Family History - Family History Family Medical History: No Pertinent Family History - Caffeine Use Caffeine Use: Reports: None ED ROS GENERAL - Review of Systems Review Of Systems: See Below Constitutional: Reports: No Symptoms HEENT: Reports: No Symptoms Respiratory: Reports: No Symptoms Cardiovascular: Reports: No Symptoms Endocrine: Reports: No Symptoms GI/Abdominal: Reports: No Symptoms : Reports: No Symptoms Musculoskeletal: Reports: No Symptoms Skin: Reports: No Symptoms Neurological: Reports: No Symptoms Psychiatric: Reports: No Symptoms Hematologic/Lymphatic: Reports: No Symptoms Immunologic: Reports: No Symptoms ED EXAM, GENERAL - Physical Exam Exam: See Below Exam Limited By: No Limitations General Appearance: Alert Eye Exam: Bilateral Eye: EOMI, PERRL Head: Atraumatic Neck: Normal Inspection, Supple, Non-Tender Respiratory/Chest: No Respiratory Distress, Lungs Clear, Normal Breath Sounds Cardiovascular: Normal Peripheral Pulses, Regular Rate, Rhythm GI/Abdominal: Normal Bowel Sounds, Soft, Non-Tender Extremities: Normal Inspection, Normal Range of Motion, Non-Tender Neurological: Alert, Oriented Course - Vital Signs Last Recorded V/S: Last Vital Signs Temp 97.1 F 10/28/20 19:56 Pulse 134 H 10/28/20 19:56 Resp 20 10/28/20 19:56 BP 121/87 10/28/20 19:56 Pulse Ox 95 10/28/20 19:56 - Re-Assessments/Exams Free Text/Narrative Re-Assessment/Exam: 10/28/20 20:58 Patient x-rays are negative did not want any pain meds patient will try most on [id number]. Departure - Departure Time of Disposition: 20:58 Disposition: Home, Self-Care 01 Condition: Good Clinical Impression: Rib pain - Discharge Information *PRESCRIPTION DRUG MONITORING PROGRAM REVIEWED*: Not Applicable *COPY OF PRESCRIPTION DRUG MONITORING REPORT IN PATIENT SUSAN: Not Applicable Instructions: Chest Wall Pain, [id number] Referrals: Jaspreet Gerardo MD [Primary Care Provider] - Forms: ED Department Discharge Additional Instructions: The following information is given to patients seen in the emergency department who are being discharged to home. This information is to outline your options for follow-up care. We provide all patients seen in our emergency department wit h a follow-up referral. The need for follow-up, as well as the timing and circumstances, are variable depending upon the specifics of your emergency department visit. If you don't have a primary care physician on staff, we will provide you with a referral. We always advise you to contact your personal physician following an emergency department visit to inform them of the circumstance of the visit and for follow-up with them and/or the need for any referrals to a consulting specialist. The emergency department will also refer you to a specialist when appropriate. This referral assures that you have the opportunity for follow-up care with a specialist. All of these measure are taken in an effort to provide you with optimal care, which includes your follow-up. Under all circumstances we always encourage you to contact your private physician who remains a resource for coordinating your care. When calling for follow-up care, please make the office aware that this follow-up is from your recent emergency room visit. If for any reason you are refused follow-up, please contact the Emergency Department at and asked to speak to the emergency department charge nurse. Please follow up with your primary care physician. If you do not have a primary care physician, see below: [facility] [address] [place] [id number] [facility] [address] [place] [address] You were seen today for left rib pain. Your x-rays did not show any fractures. You are stable for discharge home please try [id number] Motrin or Tylenol. Sepsis Event Note (ED) - Focused Exam Vital Signs: Vital Signs Temp Pulse Resp BP Pulse Ox 10/28/20 19:56 97.1 F 134 H 20 121/87 95 - Assessment/Plan Plan: Patient is a 35-year-old male presents today for left-sided flank pain after falling on it while playing softball. There is no notes of areas of bruising on exam. We will obtain x-rays and reassess patient.
--- NOTE | 2020-10-28 20:45 | CR ---
INDICATION: Fall on left side TECHNIQUE: Four views the left ribs FINDINGS: Oblique views of the left ribs demonstrate no evidence for left rib fracture. IMPRESSION: No evidence for left rib fracture. Dictated by Gisela Prieto MD @ 10/28/2020 8:44:[address] Gisela Prieto @ Oct 28 2020 8:44PM
== END 2020-10-28 21:11 | disposition home or self-care (01) ==
LOC: MW.ED 19:37
DX: R07.81 Pleurodynia (principal)
CPT/HCPCS: 71100-26-LT; 71100-LT; 99283-25

== ENCOUNTER 2022-11-26 22:30 | Emergency (ER) | payer SELFPAY ==
[2022-11-26 23:41] LABS: BASOPHILS PERCENT AUTO 0.2 % (0.0-1.5); EOSINOPHILS PERCENT AUTO 0.6 % (0.0-7.0); HEMATOCRIT 45.1 % (38.0-50.0); HEMOGLOBIN 16.2 g/dL (13.0-17.0); LYMPHOCYTES ABSOLUTE AUTO 1.1 K/uL (0.6-2.4); LYMPHOCYTES PERCENT AUTO 19.9 % (16.0-40.0); MEAN CORPUSCULAR HEMOGLOBIN 35.7 pg (27.0-32.0); MEAN CORPUSCULAR HGB CONC 35.9 g/dL (31.0-37.0); MEAN CORPUSCULAR VOLUME 99.3 fL (80.0-98.0); MONOCYTES ABSOLUTE AUTO 0.6 K/uL (0.0-0.8); MONOCYTES PERCENT AUTO 10.3 % (0.0-15.0); NEUTROPHILS ABSOLUTE AUTO 3.7 K/uL (1.4-5.7); NRBC ABSOLUTE 0 K/uL; PLATELET COUNT,PLT 143 K/uL (150-400); RED BLOOD CELL COUNT 4.54 M/uL (4.50-5.90); WHITE BLOOD CELL COUNT,WBC 5.42 K/uL (4.0-11.0)
[2022-11-27 00:01] LABS: ALBUMIN 4.2 g/dL (3.4-5.0); BILIRUBIN TOTAL 1.8 mg/dL (0.2-1.0); EST CRCL DRUG DOSING (CG) 103.42 mL/min; POTASSIUM,K 3.7 mmol/L (3.5-5.1); PROTEIN TOTAL,TP 8.4 g/dL (6.4-8.2)
[2022-11-27] MEDS ORDERED: Iopamidol 755 MG/ML 500 ML Multipack Bottle IVPUSH STA (00:06)
[2022-11-27 01:53] VITALS: BP 153/102; PULSE 81
== END 2022-11-27 01:52 | disposition home or self-care (01) ==
LOC: MW.ED 22:30
DX: R10.11 Right upper quadrant pain (principal); Z79.899 Other long term (current) drug therapy
CPT/HCPCS: 36415; 74177; 80053; 83690; 85025; 99284; Q9967